=== PATIENT | male | born 1965 | race Hispanic/Latino ===

== ENCOUNTER 2017-08-22 07:26 | Emergency (ER) | payer OTHER ==
[~2017-08-22 07:26] MED LIST: ZOLMITRIPTAN SL
[2017-08-22 07:29] VITALS: BP 154/94
--- NOTE | 2017-08-22 07:58 | ED GENERAL ADULT ---
History of Present Illness General Chief Complaint: Lower Extremity Injury Stated Complaint: KNEE PAIN Source: patient Exam Limitations: no limitations Vital Signs & Intake/Output Vital Signs & Intake/Output Vital Signs Date Time Temp Pulse Resp B/P B/P Pulse O2 O2 Flow FiO2 Mean Ox Delivery Rate 08/22 0729 97.1 75 16 154/94 97 Room Air Allergies Coded Allergies: NO KNOWN ALLERGIES (09/01/11) Reconcile Medications Ibuprofen 600 MG TABLET 1 TAB PO TID PRN pain with food Zolmitriptan (Zolmitriptan Odt) 5 MG ODT 1 TAB SL ONCE PRN MIGRAINE REPEAT ONCE IF NEEDED 2 HOURS AFTER FIRST DOSE Triage Note: PT HAD JETSKI HIT HIS LEFT KNEE WHILE LOADING IT ON A TRAILER YESTERDAY. STATES THAT KNEE TWISTED AROUND. SWELLING NOTED, PAIN WORSE WITH AMBULATION. Triage Nurses Notes Reviewed? yes Onset: Gradual Duration: continues in ED Timing: single episode today Injury Environment: home Severity Numbers: 8 Modifying Factors: Improves With: immobilization. Worsens With: movement. HPI: 52-year-old male with hypertension presented to the emergency department reporting yesterday he was putting his skis back into his truck and they had hit his left and right knee straight on. He reports the left knee to be most painful at about 8 out of 10 located on the medial aspect of the left knee. He reports that there was a twisting motion when the injury occurred. He denies any other trauma or injury. Past History Travel History Traveled to [place] past 21 day No Medical History Any Pertinent Medical History? 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 No Review of Systems Review of Systems Constitutional: Reports: see HPI. EENTM: Reports: no symptoms. Respiratory: Reports: no symptoms. Cardiovascular: Reports: no symptoms. GI: Reports: no symptoms. Genitourinary: Reports: no symptoms. Musculoskeletal: Reports: see HPI. Skin: Reports: no symptoms. Neurological/Psychological: Reports: no symptoms. Hematologic/Endocrine: Reports: no symptoms. Immunologic/Allergic: Reports: no symptoms. All Other Systems: Reviewed and Negative Physical Exam Physical Exam General Appearance: well developed/nourished, no apparent distress, alert, awake , comfortable Head: atraumatic, normal appearance Eyes: Bilateral: normal appearance. Ears, Nose, Throat: hearing grossly normal Neck: full range of motion Respiratory: no respiratory distress Peripheral Pulses: 3+ dorsalis pedis (R), 3+ dorsalis pedis (L) Back: normal range of motion Extremities: normal inspection, normal capillary refill, normal range of motion, no edema Neurologic/Psych: no motor/sensory deficits, awake, alert, oriented x 3, normal mood/affect Skin: intact, normal color, warm/dry Comments: L knee - Minimal swelling over medial knee, no ecchymoses. Negative anterior/ posterior drawer test. Tenderness with varus stress test. Core Measures ACS in differential dx? No CVA/TIA Diagnosis: No Sepsis Present: No Sepsis Focused Exam Completed? No Progress Differential Diagnoses I considered the following diagnoses in my evaluation of the patient: [knee sprain/strain, ligament strain or tear] Plan of Care: Orders Procedure Date/time Status Durable Medical Equipment 08/22 830 Active 52-year-old male presented to the emergency department with trauma to left medial knee 1 day ago. X-ray revealed moderate joint effusion, with no other acute injury. Exam findings pain with varus stress test, potential strain of MCL. Patient fitted with knee immobilizer by nurse, was offered crutches but declined. Given 1 dose of ibuprofen in ED. Rx'd to pharmacy and advised to RICE and to f/u tomorrow with ortho for potential MRI if no improvement. Patient stable at time of discharge. Diagnostic Imaging: Viewed by Me: Radiology Read. Discussed w/RAD: Radiology Read. Radiology Impression: PATIENT: YOBANY ALBRIGHT PRESENT AGE: 52 PATIENT ACCOUNT NO: [id number] : 64 LOCATION: [facility] ORDERING PHYSICIAN: Stephen Tobias MD SERVICE DATE: 08/22/17 EXAM TYPE: RAD - XRY-KNEE COMPLETE LEFT EXAMINATION: XR KNEE, LEFT CLINICAL INFORMATION: Swelling status-post injury; question fracture. COMPARISON: Prior radiographs dated 12/05. TECHNIQUE: AP, lateral, tunnel, and sunrise views of the left knee. FINDINGS: Bones and soft tissues are normal. No fracture or dislocation. There is a moderate joint effusion. Alignment is anatomic. Joint spaces are well maintained. No abnormal soft tissue calcification. IMPRESSION: 1. There is a moderate joint effusion. 2. Otherwise, unremarkable examination. DICTATED BY: Armani Vaca MD DATE/TIME DICTATED:08/22/17799 [employer] SUPERVISOR:QAMAR DATE/TIME TRANSCRIBED:08/22/17799 CONFIDENTIAL, DO NOT COPY WITHOUT APPROPRIATE AUTHORIZATION. <Electronically signed in Other Vendor System> SIGNED BY: Armani Vaca MD 08/22/17805 Initial ED EKG: none Departure Departure Disposition: HOME OR SELF CARE Condition: Stable Clinical Impression Primary Impression: Knee effusion, left Secondary Impressions: Knee injury Qualifiers: Encounter type: initial encounter Laterality: left Qualified Code: S89.92XA - Unspecified injury of left lower leg, initial encounter Referrals: aYnn Martinez MD Patient Has No Primary Care Dr (PCP/Family) Additional Instructions: Keep knee immobilized as much as possible. Rest, ice, compression, elevation. Follow-up with laser specialist this week. Return to the emergency department with any new or worsening symptoms. Departure Forms: Customer Survey General Discharge Information Prescriptions: Current Visit Scripts Ibuprofen 1 TAB PO TID PRN pain #30 TAB with food Critical Care Note Critical Care Note Critical Care Time: non-applicable
--- NOTE | 2017-08-22 08:06 | RADIOLOGY REPORT ---
EXAMINATION: XR KNEE, LEFT CLINICAL INFORMATION: Swelling status-post injury; question fracture. COMPARISON: Prior radiographs dated 12/05/2014. TECHNIQUE: AP, lateral, tunnel, and sunrise views of the left knee. FINDINGS: Bones and soft tissues are normal. No fracture or dislocation. There is a moderate joint effusion. Alignment is anatomic. Joint spaces are well maintained. No abnormal soft tissue calcification. IMPRESSION: 1. There is a moderate joint effusion. 2. Otherwise, unremarkable examination.
[2017-08-22] MEDS ORDERED: IBUPROFEN600 M1 PO (08:31)
== END 2017-08-22 08:41 ==
LOC: ERH 07:26
DX: S89.92XA Unspecified injury of left lower leg, initial encounter (principal); M25.462 Effusion, left knee; W22.8XXA Striking against or struck by other objects, initial encounter; Y93.89 Activity, other specified
CPT/HCPCS: 73562-LT

== ENCOUNTER → 2017-10-21 | Day surgery (SDC) | payer OTHER ==
[~2017-10-21] VITALS: Ht 160 cm; Wt 89.4 kg
[~2017-10-21] MED LIST changes: +IBUPROFEN600 M1 PO
--- NOTE | 2017-10-21 09:03 | Operative Report ---
Operative/Inv Procedure Report Surgery Date: 10/21/17 Name of Procedure: Left knee ACL reconstruction using hamstring autograft, partial medial meniscectomy Pre-Operative Diagnosis: Left ACL tear, medial meniscus tear Post-Operative Diagnosis: Left ACL tear, medial meniscus tear Estimated Blood Loss: scant Surgeon/Commodity Industry Analyst: Mary Jane AMAYA,SHANI uJrado Anesthesia: block, spinal Complications: None Condition: Stable to PACU Operative Indication: This is a 52 male who injured his left knee loading a jet ski. MRI showed an ACL tear. Risks and benefits of the procedure were discussed with the patient at length. Risks include but are not limited to nerve damage, muscle damage, infection, blood loss, blood clots, pulmonary embolus, and even . The patient agreed to the above risks and elected to proceed with surgery. Operative/Procedure Note Note: The patient was placed supine on the operating room table. A tourniquet was applied. The lower extremity prepped and draped in normal sterile fashion. A timeout was performed before the incision. The site marking was visualized before incision. After the leg was prepped and draped, an Esmarch was used to exsanguinate the extremity. The tourniquet was inflated. An incision was made medial and distal to the tibial tubercle. Soft tissue dissection was performed down to the sartorius fascia. The sartorius fascia was incised in line with the gracilis and semi-tendinosis tendons. The gracilis tendon was isolated and a vessel loop was placed deep to this. Adhesions were released with a scissor. A tendon stripper was then passed up and the gracilis was delivered from the wound. It was then amputated at its insertion point. The semi-tendinosis tendon was also removed in similar fashion. The hamstring tendons were then sized and prepared on the back table. Muscular tissue was debrided with a metal ruler. Fiber wire suture was then whipstitched at the end of the tendons. It was placed on the tensioner at 10 pounds of tension and a moist Ray-Indira was then placed over the tendons to keep it from drying out. A standard inferolateral portal was established with an 11 blade. The camera was inserted. A medial portal was established with a spinal needle and an 11 blade. The diagnostic arthroscopy was then performed which showed the above findings. A shaver was then used to debride the ACL stump. A bur was then used to perform a notchplasty for visualization purposes. Next the bur was used to ray the placement of the femoral tunnel in its anatomic position on the lateral femoral wall. An upbiter as well as a shaver used to debride the medial meniscus back to stable cartilage. A wand was also used to further stabilize the medial meniscus. A drill guide was then used and the wire was then placed through the anatomic footprint of the ACL on the tibia. This was then overreamed with a #9 reamer. A shaver was then used to clear out the soft tissue from the tibial tunnel aperture. Through the medial portal a #9 acorn reamer was used to drill the femoral tunnel to 30 mm. An Endobutton reamer was then drilled through. There was a short bony brace as such an extendobutton was added to the Endobutton. The #9 acorn reamer was then used to drill completely through the femoral cortex. The Beath pin was then drilled from the medial portal through the lateral aspect of the femur and a #2 ortho cord suture was then shuttled for graft passage. The suture was then grasped through the tibial tunnel and the suture was used to shuttle the graft and an Ultrabutton up into the femoral tunnel. The button was flipped. An x-ray was taken to ensure that the Endobutton was flush to the femoral cortex. The graft was then reduced. There was no graft impingement noted. A Embotics sync device was then used. First the tibia was tapped. The 9-10 sheath was then placed over a wire. The 9x25 mm screw was then placed while traction was pulled distally and a posterior drawer maneuver was applied. Excellent fixation was noted and the atif exam was noted to be stable. The excess tendon and sutures were cut. The knee was then copiously irrigated. A 1/8 inch Hemovac drain was placed through the lateral portal. The sartorius fascia was closed with 0 Vicryl suture. The skin was closed with 2-0 Vicryl suture and a running subcuticular 3 -0 Prolene stitch. The portal sites were closed with 3-0 Prolene. A dry sterile dressing was applied. A brace was applied. The patient was awoken from anesthesia and transferred to PACU in stable condition. Findings: Complete ACL tear. PCL intact. Medial compartment articular cartilage with grade 2 chondral softening over the medial tibial plateau and grade 1 chondral softening of the medial femoral condyle. Radial tear of the medial meniscus extending far into the periphery at the junction of the body and posterior horn. Lateral compartment articular cartilage intact. Lateral meniscus intact. Patellofemoral joint articular cartilage intact. No loose bodies noted.
[2017-10-21 09:09] LABS: ABSOLUTE BASOPHIL COUNT 0.1 /CUMM (0.0-0.2); ABSOLUTE EOSINOPHIL COUNT 0.2 /CUMM (0.0-0.7); ABSOLUTE GRANULOCYTE CT 4.5 /CUMM (1.4-6.5); ABSOLUTE LYMPH COUNT 1.7 /CUMM (1.2-3.4); ABSOLUTE MONOCYTE COUNT 0.7 /CUMM (0.10-0.60); BASOPHIL % 1.3 % (0.0-2.0); EOSINOPHIL % 3.1 % (0-5); GRANULOCYTE % 63.2 % (42.2-75.2); HEMATOCRIT 40.6 % (42-52); MEAN CORPUSCULAR HGB 29.8 PG (27.0-31.0); MEAN CORPUSCULAR HGB CONC 33.9 G/DL (33.0-37.0); MEAN CORPUSCULAR VOLUME 88.1 FL (80.0-94.0); MEAN PLATELET VOLUME 8.7 FL (7.4-10.4); PLATELET COUNT 240 /CUMM (130-400); RBC DISTRIBUTION WIDTH 15.2 % (11.5-14.5); RED BLOOD CELL CT 4.61 /CUMM (4.70-6.10); WHITE BLOOD CELL COUNT 7.1 /CUMM (4.8-10.8)
== END ==
LOC: STS 01:54
PROVIDERS: Orthopaedic Surgery
DX: S83.512A Sprain of anterior cruciate ligament of left knee, initial encounter (principal); S83.242A Other tear of medial meniscus, current injury, left knee, initial encounter; X50.0XXA Overexertion from strenuous movement or load, initial encounter; I10 Essential (primary) hypertension; G47.33 Obstructive sleep apnea (adult) (pediatric); R79.89 Other specified abnormal findings of blood chemistry; Z87.891 Personal history of nicotine dependence
CPT/HCPCS: 36592; C1713; C9290; J0131; J0690; J2250